=== PATIENT | male | born 1995 | race Two or more races ===

== ENCOUNTER 2018-06-09 16:50 | Emergency (ER) | payer OTHER ==
--- NOTE | 2018-06-09 17:18 | EDPHY ---
H & P Stated Complaint: fell from skateboard, hit head w/o loc, inj rt elbow Time Seen by Provider: 06/09/18 17:05 HPI/ROS: CHIEF COMPLAINT: Right elbow pain, facial abrasion HISTORY OF PRESENT ILLNESS: The patient presents the emergency department after he fell off his skateboard yesterday. The patient landed primarily on his right side. He presents to the ED complaining of pain over his right olecranon. Patient did strike his head however did not lose consciousness. He has no complaints of appreciable headache. He did sustain a small abrasion above his right eyebrow. The patient denies any back pain, chest pain, difficulty breathing or abdominal pain. The patient takes no regular medications. He denies any numbness or weakness. He has no complaints of cervical spine pain. REVIEW OF SYSTEMS: A comprehensive 10 point review of systems is otherwise negative aside from elements mentioned in the history of present illness. Source: Patient Exam Limitations: No limitations - Personal History Current Tetanus Diphtheria and Acellular Pertussis (TDAP): Yes - Medical/Surgical History Hx Asthma: No Hx Chronic Respiratory Disease: No Hx Diabetes: No Hx Cardiac Disease: No Hx Renal Disease: No Hx Cirrhosis: No Hx Alcoholism: No Hx HIV/AIDS: No Hx Splenectomy or Spleen Trauma: No - Social History Smoking Status: Never smoked - Physical Exam Exam: General Appearance: Alert, no distress Head: Superficial abrasion noted over the right eyebrow Eyes: Pupils equal, round, reactive ENT, Mouth: No hemotympanum, no oral trauma Neck: Nontender, trachea midline Respiratory: No chest wall tender,no subcutaneous air, lungs clear bilaterally Cardiovascular: Regular rate and rhythm Abdomen: Abdomen is soft and nontender, pelvis stable Skin: No lacerations, No abrasion Back: No midline T/L/S pain Extremities: Tenderness to palpation over the right olecranon, painful range of motion with full flexion Neurological: A&Ox3, normal motor function, normal sensory exam Constitutional: Initial Vital Signs Temperature (C) 36.9 C 06/09/18 16:56 Heart Rate 95 06/09/18 16:56 Respiratory Rate 14 06/09/18 16:56 Blood Pressure 144/112 H 06/09/18 16:56 O2 Sat (%) 98 06/09/18 16:56 O2 Delivery Mode Room Air Allergies/Adverse Reactions: naproxen Allergy (Verified 06/09/18 17:00) Home Medications: Medication Instructions Recorded NK [No Known Home Meds] 06/09/18 Medical Decision Making - Diagnostics Imaging Results: Imaging Impressions Elbow X-Ray 06/09/18 17:12 Impression: 1. Minimally depressed right radial head fracture. Procedures: Procedure: Splint placement. A ortho glass sugar-tong splint was applied to the right upper extremity by the tech. After application of the splint I returned and re-examined the patient. The splint was adequately immobilizing the joint and distal to the splint the patient's circulation and sensation was intact. ED Course/Re-evaluation: Patient presents the ED for evaluation of right elbow pain following a fall skateboarding. The patient is noted to have a minimally displaced right radial head fracture. The patient has been placed in a sling. He is advised to follow up with our on-call orthopedic surgeon for a recheck within the next 3-5 days. The patient is advised to use Tylenol as needed for pain. Differential Diagnosis: Differential diagnosis considered includes fracture, sprain, dislocation Departure - Departure Disposition: Home, Routine, Self-Care Clinical Impression: Radial head fracture Qualifiers: Encounter type: initial encounter Fracture type: closed Fracture alignment: nondisplaced Laterality: right Qualified Code(s): S52.124A - Nondisplaced fracture of head of right radius, initial encounter for closed fracture Condition: Good Instructions: Elbow Fracture (ED) Additional Instructions: 1. Please wear splint and sling until seen in follow-up by Orthopedic surgery. 2. Tylenol as needed for pain. 3. Return to the ED for markedly worsening symptoms or other concerns. Referrals: Arturo Warren MD [Medical Doctor] - As per Instructions
[2018-06-09 18:26] VITALS: BP 136/92
== END 2018-06-09 18:26 | disposition home or self-care (01) ==
PROC: 2W38X1Z Immobilization of Right Upper Extremity using Splint (ICD-10-PCS; principal; 2018-06-09)
DX: S52.124A Nondisplaced fracture of head of right radius, initial encounter for closed fracture (principal); S00.81XA Abrasion of other part of head, initial encounter; V00.131A Fall from skateboard, initial encounter; Y93.51 Activity, roller skating (inline) and skateboarding
CPT/HCPCS: A4565